=== PATIENT | female | born 1995 | race Caucasian/White ===

== ENCOUNTER 2018-06-19 19:59 | Emergency (ER) | payer OTHER ==
[~2018-06-19] VITALS: Ht 160 cm; Wt 61.2 kg
== END 2018-06-19 22:31 | disposition home or self-care (01) ==
LOC: ER 19:59
DX: N39.0 Urinary tract infection, site not specified (principal)

== ENCOUNTER 2021-01-22 12:00 | Emergency (ER) | payer OTHER ==
[~2021-01-22] VITALS: Ht 160 cm; Wt 63.5 kg
[~2021-01-22 12:00] MED LIST: CRYSELLE-28 TA1 EACH
== END 2021-01-22 14:48 | disposition home or self-care (01) ==
LOC: ER 12:00
DX: N92.5 Other specified irregular menstruation (principal); Z33.1 Pregnant state, incidental